=== PATIENT | male | born 1955 | race Caucasian/White ===

== ENCOUNTER 2022-09-22 19:07 | Emergency (ER) | payer BC, SELFPAY ==
--- NOTE | ~2022-09-22 | CT_ITS ---
EXAMINATION: CT ABDOMEN AND PELVIS WITHOUT CONTRAST CLINICAL INFORMATION: Left flank pain and hematuria with question of kidney stones COMPARISON: CT abdomen pelvis 03/07/2017 TECHNIQUE: Multidetector volumetric imaging was performed from the superior aspect of the liver through the pubic symphysis. Sagittal and coronal reformatted images were obtained on the technologist's workstation. This CT examination was performed using dose optimization techniques as appropriate, variously including the following: *Automated exposure control *Adjustment of mA and/or kV according to patient size (this includes techniques or standardized protocols for targeted exams where dose is matched to indication/reason for exam; i.e. extremities or head) *Use of iterative reconstruction technique DLP: 848 mGy-cm FINDINGS: LUNG BASES: The visualized lung bases are unremarkable. LIVER, GALLBLADDER, AND BILIARY TREE: The liver is normal in size, shape, and attenuation. No focal hepatic lesion or biliary ductal dilatation is present. Status post cholecystectomy. PANCREAS: Unremarkable. SPLEEN: Unremarkable. ADRENAL GLANDS: Unremarkable. KIDNEYS AND URETERS: The kidneys are normal in size, shape, and attenuation. There is a 5 mm mildly obstructing stone at the left ureterovesical junction. There is mild dilatation of the ureter and intrarenal collecting systems on the left. No right-sided hydronephrosis, hydroureter, or intrarenal calculi seen. No perinephric stranding. BLADDER: The bladder is completely empty. GASTROINTESTINAL TRACT: A small hiatal hernia is present. A sigmoid resection has been performed with a anastomosis. Extensive diverticular changes are present in the left colon without evidence of diverticulitis The small and large bowel are unremarkable. The appendix is not identified but no evidence of appendicitis. ABDOMINAL WALL: Prior mesh hernia repair in the right abdomen. LYMPH NODES: No retroperitoneal lymphadenopathy. VASCULAR: Unremarkable aside from some mild calcific plaque PELVIC VISCERA: Mild BPH. OSSEOUS STRUCTURES: Degenerative changes present throughout the spine most marked in the lower thoracic spine and at L3-L4. No bony destructive lesions. CT/CT abdomen pelvis wo IV con IMPRESSION: 1. Obstructing 5 mm calculus at the left ureterovesical junction causing mild hydronephrosis. 2. Other incidental findings as described above. Fleischner guidelines were followed.
[2022-09-22 19:28] VITALS: BP 181/93; PULSE 71; RESP 18; TEMP 36.1; O2SAT 97; BMI 35.4
--- NOTE | 2022-09-22 19:30 | ED_ITS ---
HPI - General Adult General Chief complaint: Urogenital-Male Stated complaint: L flank pain Time Seen by Provider: 09/22/22 22:34 Source: patient and family Mode of arrival: ambulatory Limitations: no limitations History of Present Illness HPI narrative: 66-year-old male came in with left flank pain about 5 hours ago pain has been constant localized to the left flank area and radiates to the left groin area, describes the pain as severe 10/10, was associated with nausea, vomiting, and 1 time loose stool diarrhea with no blood in it, patient also noticed having blood in the urine, never had similar pain in the past, no history of kidney stones. For Declined any history of intra-abdominal surgery. Related Data Previous Rx's Medication Instructions Recorded levofloxacin 750 mg tablet 750 mg PO DAILY #7 tabs 09/22/22 ondansetron 4 mg disintegrating 4 mg PO Q8-12H PRN nausea and 09/22/22 tablet vomiting #7 tabs oxycodone 5 mg tablet 5 mg PO Q8H PRN pain #14 tabs 09/22/22 prednisone 20 mg tablet 20 mg PO BID #10 tabs 09/22/22 tamsulosin 0.4 mg capsule (Flomax) 0.4 mg PO DAILY #10 caps 09/22/22 oxycodone-acetaminophen 5 mg-325 1 tab PO Q8H PRN pain #14 tabs 09/23/22 mg tablet (Endocet) Allergies Allergy/AdvReac Type Severity Reaction Status Date / Time No Known Allergies Allergy Verified 09/22/22 19:28 [No Known Allergies*] Review of Systems Review of Systems: All other systems are reviewed and are negative Constitutional: Reports as per HPI and Reports no additional constitutional c omplaints Eyes: Reports as per HPI and Reports no additional eye complaints Reports system reviewed and no additional complaints, except as documented Cardiovascular: Reports as per HPI and Reports no additional cardiovascular complaints Respiratory: Reports as per HPI and Reports no additional respiratory complaints Gastrointestinal: Reports as per HPI and Reports no additional gastrointestinal complaints Genitourinary: Reports no additional female genitourinary complaints Musculoskeletal: Reports no additional musculoskeletal complaints Skin/Breast: Reports system reviewed and no additional complaints, except as docu Psychiatric: Reports no additional psychiatric complaints Endocrine: Reports no additional endocrine complaints Hematologic/Lymphatic: Reports no additional hematologic/lymphatic complaints Allergic/Immunologic: Reports no additional allergic/immunologic complaints Reports system reviewed and no additional complaints, except as documented and Reports Abnormal speech present Physical Exam ED Vital Signs: Vital Signs - 24 hr 09/22/22 19:28 09/22/22 21:47 09/22/22 22:56 Temperature 97 F 97.5 F Pulse Rate 71 75 Respiratory Rate 18 19 16 Blood Pressure 181/93 H 172/90 H Pulse Oximetry 97 95 Oxygen Delivery Method Room Air Room Air BMI result Body Mass Index 35.4 Vital signs have been reviewed as appeared to be correct. Blood pressure normal. Heart rate normal. Respiration rate normal. Temperature normal. Oxygen saturation normal. Appearance: Alert. Oriented X3. No acute distress. Head: Normal external exam. Normocephalic. Atraumatic. No Zuniga signs noted. No raccoon eyes noted Eyes: PERRLA. EOMI. Conjunctiva and sclera normal. Eyelids normal. ENT: TM's Normal. Pharynx normal. Uvula midline. Moist mucous membranes. No trismus noted. No drooling noted. No muffled voice noted. Neck: Normal inspection. Neck supple. FROM. No adenopathy. Thyroid Normal. No meningeal signs. No neck mass noted. CVS: Normal heart rate and rhythm. Heart sound normal. No murmurs noted. Pulses normal throughout. Respiratory: No respiratory distress. Painless inspiration. Breath sounds normal. No wheezes/rales/rhonchi noted. Chest nontender. No accessory muscle usage noted or decreased air movement noted. Abdomen: Soft and nontender. Bowel sounds normal in all 4 quadrants. No distention noted. No organomegaly noted. No visible injury noted. Back: Left CVA tenderness. Full range of motion noted. Skin: Skin warm and dry. Normal skin color. Normal skin turgor. No rashes/lesions/lacerations noted. Extremities: No lower extremity edema. Extremities exhibit normal range of motion. Extremities nontender. Neuro: Oriented X 3. Cranial nerve exam: II-XII are grossly intact No motor deficit. No sensory deficit. Reflexes normal. Course Course Course Narrative: RME; 66 yold male presents to the ED for left flank pain, nuasea, and hemturia. Patient denies any trauma. labs and abdominal CT scan ordered Reevaluation(s) Reevaluation #1: 5 mm stone in the left UVJ causing the patient's symptoms, patient now has feeling better after IV Dilaudid and Toradol, patient will be discharged on oxycodone/prednisone/Flomax and follow up with Urology as an outpatient. Medications Administered Discontinued Medications Generic Name Dose Route Start Last Admin Trade Name Rayshawnq PRN Reason Stop Dose Admin Hydromorphone HCl 2 mg 09/22/22 22:39 09/22/22 22:56 Hydromorphone Hcl 2 Mg/Ml Vial IVPUSH 09/22/22 22:40 2 mg ONCE ONE Administration Protocol Sodium Chloride 1,000 mls @ 999 mls/hr 09/22/22 22:39 09/22/22 23:52 Ns IV 09/22/22 23:39 Infused .Q1H1M ONE Infusion Ketorolac Tromethamine 30 mg 09/22/22 22:39 09/22/22 22:55 Ketorolac Tromethamine 30 Mg/Ml Vial IVPUSH 09/22/22 22:40 30 mg ONCE ONE Administration Levofloxacin 750 mg 09/22/22 23:40 09/22/22 23:53 Levofloxacin 750 Mg Tablet PO 09/22/22 23:41 750 mg ONCE ONE Administration Ondansetron HCl 4 mg 09/22/22 22:39 09/22/22 22:56 Ondansetron Hcl 4 Mg/2 Ml Vial IVPUSH 09/22/22 22:40 4 mg ONCE ONE Administration Prednisone 40 mg 09/22/22 22:39 09/22/22 22:56 Prednisone 20 Mg Tablet PO 09/22/22 22:40 40 mg ONCE ONE Administration Tamsulosin HCl 0.4 mg 09/22/22 22:39 09/22/22 22:56 Tamsulosin Hcl 0.4 Mg Capsule PO 09/22/22 22:40 0.4 mg ONCE ONE Administration Medical Decision Making Differential Diagnosis Differential Diagnoses: The differential diagnosis associated with the presentation includes (Kidney stone, pyelonephritis, UTI, severe anemia, electrolyte abnormalities.) Admission/Observation Consideration of admission/observation: Escalation of care including admission/observation considered Lab Data MDM Lab Attestation statement: I reviewed the patient's lab results. 09/22/22 19:52 09/22/22 19:52 Labs: Lab Results 09/22/22 09/22/22 09/22/22 Range/Units 19:52 19:52 19:52 WBC 7.4 (4.8-10.8) X10*3/uL RBC 5.32 (4.60-5.80) X10*6/uL Hgb 15.6 (14.0-18.0) g/dl Hct 47.0 (42.0-52.0) % MCV 88.3 (80.0-98.0) fL MCH 29.3 (27.0-33.0) pg MCHC 33.2 (31.0-36.0) g/dl RDW 13.2 (11.0-16.0) % Plt Count 189 (160-400) X10*3/uL MPV 10.0 (9.4-12.4) fL Immature Gran % (Auto) 0.3 (0.0-0.4) % Neut % (Auto) 60.5 (45-73) % Lymph % (Auto) 27.5 (20-40) % [place] % (Auto) 9.3 (2-11) % Eos % (Auto) 1.9 (0-4) % Baso % (Auto) 0.5 (0-2) % Lymph # (Auto) 2.0 (1.2-4.9) X10*3/uL [place] # (Auto) 0.7 (0.1-1.2) X10*3/uL Eos # (Auto) 0.1 (0.0-0.4) X10*3/uL Baso # (Auto) 0.0 (0.0-0.2) X10*3/uL Abs Immat Gran (auto) 0.02 (0.00-0.03) X10*3/uL Absolute Neuts (auto) 4.5 (2.0-8.3) x10*3/uL Absolute Nucleated RBC 0.000 (0.0-0.012) X10*3/uL Nucleated RBC % (auto) 0.0 (0.0-0.2) /100WBC PT 10.3 (10.0-13.1) SEC INR 0.9 (0.9-1.1) APTT 29.5 (26.0-36.4) SEC Sodium 143 (135-145) mmol/L Potassium 4.5 (3.3-5.1) mmol/L Chloride 106 (96-108) mmol/L Carbon Dioxide 26 (22-29) mmol/L Anion Gap 16 (12-20) BUN 13 (9-16) mg/dL Creatinine 1.07 (0.5-1.4) mg/dL Estim Creat Clear Calc 88.7 Estimated GFR > 60 Random Glucose 96 (60-115) mg/dL Calcium 9.3 (8.4-10.2) mg/dL Total Bilirubin 1.0 (0.0-1.0) mg/dL AST 19 (5-37) U/L ALT 21 (0-40) U/L Alkaline Phosphatase 75 (39-117) U/L Total Protein 7.4 (6.5-8.0) g/dL Albumin 4.3 (3.5-5.0) g/dL Urine Color Urine Appearance Urine pH (5.0-9.0) Ur Specific [place] (1.005-1.025) Urine Protein (Neg-Trace) mg/dL Urine Glucose (UA) (Negative) mg/dL Urine Ketones (Negative) mg/dL Urine Blood (Negative) Urine Nitrite (Negative) Ur Leukocyte Esterase (Negative) Urine RBC (0-2) /HPF Urine WBC (0-5) /HPF Ur Squamous Epith Cells (0-2) /HPF Calcium Oxalate Crystal Urine Bacteria (None Seen) Hyaline Casts (0-2) /LPF 09/22/22 Range/Units 21:50 WBC (4.8-10.8) X10*3/uL RBC (4.60-5.80) X10*6/uL Hgb (14.0-18.0) g/dl Hct (42.0-52.0) % MCV (80.0-98.0) fL MCH (27.0-33.0) pg MCHC (31.0-36.0) g/dl RDW (11.0-16.0) % Plt Count (160-400) X10*3/uL MPV (9.4-12.4) fL Immature Gran % (Auto) (0.0-0.4) % Neut % (Auto) (45-73) % Lymph % (Auto) (20-40) % [place] % (Auto) (2-11) % Eos % (Auto) (0-4) % Baso % (Auto) (0-2) % Lymph # (Auto) (1.2-4.9) X10*3/uL [place] # (Auto) (0.1-1.2) X10*3/uL Eos # (Auto) (0.0-0.4) X10*3/uL Baso # (Auto) (0.0-0.2) X10*3/uL Abs Immat Gran (auto) (0.00-0.03) X10*3/uL Absolute Neuts (auto) (2.0-8.3) x10*3/uL Absolute Nucleated RBC (0.0-0.012) X10*3/uL Nucleated RBC % (auto) (0.0-0.2) /100WBC PT (10.0-13.1) SEC INR (0.9-1.1) APTT (26.0-36.4) SEC Sodium (135-145) mmol/L Potassium (3.3-5.1) mmol/L Chloride (96-108) mmol/L Carbon Dioxide (22-29) mmol/L Anion Gap (12-20) BUN (9-16) mg/dL Creatinine (0.5-1.4) mg/dL Estim Creat Clear Calc Estimated GFR Random Glucose (60-115) mg/dL Calcium (8.4-10.2) mg/dL Total Bilirubin (0.0-1.0) mg/dL AST (5-37) U/L ALT (0-40) U/L Alkaline Phosphatase (39-117) U/L Total Protein (6.5-8.0) g/dL Albumin (3.5-5.0) g/dL Urine Color BROWN Urine Appearance Cloudy Urine pH 6.5 (5.0-9.0) Ur Specific [place] >= 1.030 H (1.005-1.025) Urine Protein 300 (3+) H (Neg-Trace) mg/dL Urine Glucose (UA) Negative (Negative) mg/dL Urine Ketones Trace (Negative) mg/dL Urine Blood Large (3+) H (Negative) Urine Nitrite Negative (Negative) Ur Leukocyte Esterase Trace H (Negative) Urine RBC >20 H (0-2) /HPF Urine WBC 6-10 H (0-5) /HPF Ur Squamous Epith Cells 0-2 (0-2) /HPF Calcium Oxalate Crystal Present Urine Bacteria None Seen (None Seen) Hyaline Casts 0-2 (0-2) /LPF Independent Interpretation I performed an independent interpretation of an: CT Scan (Abdomen and pelvis: 5 mm stone in the left UVJ with mild hydronephrosis.) Radiology Impression Discussion of test interpretation with radiology: I have reviewed the r adiologist's reading. Discharge Plan Discharge Clinical Impression: Calculus of left ureter Patient Disposition: Home, Self-Care Instructions: Ureteral Stones (ED) Prescriptions: New oxycodone 5 mg tablet 5 mg PO Q8H PRN (Reason: pain) Qty: 14 0RF Rx Instructions: Partial Fill upon patient request. tamsulosin [Flomax] 0.4 mg capsule 0.4 mg PO DAILY Qty: 10 0RF prednisone 20 mg tablet 20 mg PO BID Qty: 10 0RF ondansetron 4 mg tablet,disintegrating 4 mg PO Q8-12H PRN (Reason: nausea and vomiting) Qty: 7 0RF levofloxacin 750 mg tablet 750 mg PO DAILY Qty: 7 0RF oxycodone-acetaminophen [Endocet] 5-325 mg tablet 1 tab PO Q8H PRN (Reason: pain) Qty: 14 0RF Rx Instructions: Partial Fill upon patient request. Referrals: Willis Shah MD [Physician] - Interventions: ED Discharge Assessment Last Done: 09/22/22 23:55 Discharge Date/Time: 09/22/22 23:56
[2022-09-22 20:15] LABS: MANUAL DIFF FLAG NO
[2022-09-22 20:18] LABS: Basophils Percent Auto 0.5 % (0-2); Eosinophils Absolute Auto 0.1 X10*3/uL (0.0-0.4); Eosinophils Percent Auto 1.9 % (0-4); Hemoglobin 15.6 g/dl (14.0-18.0); Imm Gran Abs Auto 0.02 X10*3/uL (0.00-0.03); Imm Gran Pct Auto 0.3 % (0.0-0.4); Lymphocytes Percent Auto 27.5 % (20-40); Mean Corpuscular HGB Conc 33.2 g/dl (31.0-36.0); Mean Corpuscular Hemoglobin 29.3 pg (27.0-33.0); Mean Corpuscular Volume 88.3 fL (80.0-98.0); Monocytes Absolute Auto 0.7 X10*3/uL (0.1-1.2); Monocytes Percent Auto 9.3 % (2-11); Neutrophils Absolute Auto 4.5 x10*3/uL (2.0-8.3); Neutrophils Percent Auto 60.5 % (45-73); Platelet Count 189 X10*3/uL (160-400); Red Blood Count 5.32 X10*6/uL (4.60-5.80); Red Cell Distribution Width 13.2 % (11.0-16.0); White Blood Count 7.4 X10*3/uL (4.8-10.8)
[2022-09-22 20:29] LABS: INTERNATIONAL NORM RATIO 0.9 (0.9-1.1); Prothrombin Time 10.3 SEC (10.0-13.1)
[2022-09-22 20:32] LABS: Partial Thromboplastin Time 29.5 SEC (26.0-36.4)
[2022-09-22 20:33] LABS: Alanine Aminotransferase 21 U/L (0-40); Albumin Level 4.3 g/dL (3.5-5.0); Alkaline Phosphatase 75 U/L (39-117); Anion Gap 16 (12-20); Aspartate Amino Transferase 19 U/L (5-37); Blood Urea Nitrogen 13 mg/dL (9-16); Calcium 9.3 mg/dL (8.4-10.2); Carbon Dioxide 26 mmol/L (22-29); Chloride 106 mmol/L (96-108); Creatinine Clr Calc Pharmacy 88.7; Estimated Glomerular Filt Rate > 60; Glucose Random 96 mg/dL (60-115); Potassium 4.5 mmol/L (3.3-5.1); Sodium 143 mmol/L (135-145); Total Protein 7.4 g/dL (6.5-8.0)
[2022-09-22 21:47] VITALS: BP 172/90; PULSE 75; RESP 19; TEMP 36.4; O2SAT 95
[2022-09-22 22:00] LABS: Appearance Urine Cloudy; Color Urine BROWN; Glucose Urine UA Negative (Negative); Leukocyte Esterase Urine Trace (Negative); PH 6.5 (5.0-9.0); Specific Gravity - Urine >= 1.030 (1.005-1.025); UMIC TRIGGER UACC YES; Urine Blood Large (3+) (Negative); Urine Ketones Trace mg/dL (Negative); Urine Protein 300 (3+) mg/dL (Neg-Trace)
[2022-09-22 22:26] LABS: Bacteria Urine None Seen (None Seen); Calcium Oxalate Crystals Urine Present; Hyaline Casts Urine 0-2 /LPF (0-2); RBC Urine >20 /HPF (0-2); Squamous Epithelial Cell Urine 0-2 /HPF (0-2)
[2022-09-22 22:46] LABS: Nitrite Urine Negative (Negative); UACC Culture Trigger YES
[2022-09-22] MEDS: 0.9 % Sodium Chloride 1,000 ML 999 ML IV (22:55)
[2022-09-22] MEDS: Ketorolac Tromethamine 30 MG/ML VIAL IVPUSH (22:55)
[2022-09-22 22:56] VITALS: RESP 16
[2022-09-22] MEDS: Tamsulosin HCL 0.4 MG CAPSULE PO (22:56)
[2022-09-22] MEDS: HYDROmorphone HCl 2 MG/ML VIAL IVPUSH (22:56)
[2022-09-22] MEDS: ondansetron HCL 4 MG/2 ML VIAL IVPUSH (22:56)
[2022-09-22] MEDS: predniSONE 20 MG TABLET 40 MG PO (22:56)
--- NOTE | 2022-09-22 23:28 | PC.NURSE ---
iv line placed and pt medicated per mar for obstructing kidney stone. pt actively vomiting at time of iv insertion. upon reassessment, pt sleeping, appearing much more comfortable, able to lay down and reports pain went from 10/10 to 3/10 after medication administration. iv fluids still running, at bedside, will CTM.
[2022-09-22] MEDS: levoFLOXacin 750 MG TABLET PO (23:53)
== END 2022-09-22 23:56 | disposition home or self-care (01) ==
PROVIDERS: Physician Assistant; Emergency Provider Emergency Medicine; PCP Internal Medicine
DX: N20.1 Calculus of ureter (principal); Z79.899 Other long term (current) drug therapy
CPT/HCPCS: 36415; 74176; 80053; 81001; 81003; 85025; 85610; 85730; 87086; 96361; 96374; 96375; 99283; 99284; J1170; J1885; J2405

== ENCOUNTER → 2022-09-30 08:13 | Outpatient (BNVA) | payer BC, SELFPAY | PROVIDERS: PCP Internal Medicine; Visit Provider Urology ==

== ENCOUNTER 2022-10-25 16:24 | Outpatient (REF) | payer BC, SELFPAY ==
--- NOTE | ~2022-10-25 | US_ITS ---
EXAMINATION: US RETROPERITONEAL COMPLETE (RENAL) CLINICAL INFORMATION: Calculus of ureter. COMPARISON: CT abdomen and pelvis 09/22/2022. TECHNIQUE: Real-time imaging of the kidneys and bladder. FINDINGS: RIGHT KIDNEY: 9.9 x 6.3 x 4.4 cm (SAG x AP x TRV). The kidney is normal in size, contour, and echogenicity. Renal cortical thickness is normal. No calculi or focal parenchymal lesions. No hydronephrosis. LEFT KIDNEY: 12.2 x 5.9 x 5.0 cm (SAG x AP x TRV). The kidney is normal in size, contour, and echogenicity. Renal cortical thickness is normal. No calculi or focal parenchymal lesions. No hydronephrosis. BLADDER: Well distended and normal. Bilateral ureteral jets are demonstrated. Prevoid bladder volume is 293.8 mL. Postvoid bladder volume is 72.8 mL. Shadowing from bowel gas obscures evaluation of the left ureterovesicular junction. US/US retroperitoneal comp IMPRESSION: 1. Shadowing from bowel gas obscures evaluation of the left ureterovesicular junction. No hydronephrosis or nephrolithiasis identified with certainty. 2. Small postvoid bladder residual of 72.8 mL.
== END 2022-10-25 16:25 | disposition home or self-care (01) ==
LOC: HO.US 16:24
PROVIDERS: Visit Provider Urology
DX: N20.1 Calculus of ureter (principal)
CPT/HCPCS: 76770

== ENCOUNTER 2022-11-13 08:05 | Outpatient (AMB) | payer BC, SELFPAY ==
--- NOTE | 2022-11-13 06:48 | A.OFFVIS_ITS ---
Intake Intake Visit Reasons: UVJ stone follow up/US/[facility] Intake Note: Patient presents today for a follow-up on Kidney Stone & US Results: Pt stated has not passed the stone yet, therefor pt did not do the 24 hr Urine Collection for [facility]: Meds- Tamsulosin Allergies to Antibiotic- None Blood Thinner- None Patient states that he stopped taking tamsulosin states that the medication along with his other medications was causing patient to be dizzy. Allergies No Known Allergies [No Known Allergies*] Allergy (Verified 11/13/22 08:07) HPI HPI Comments History of Present Illness Details Jose Alejandro is a 66-year-old male who presents today to the office for a follow-up of kidney stones and ultrasound. LV-- 09/30/22-- The patient was seen in the ED on 09/22/22 with left flank pain and was found to have a 5 mm UPJ stone.He is with his who is a Nurse Practitioner. States not having flank pain anymore and has needed oxycodone-acetaminophen only 3 x for pain management since the ER discharge. states increased voiding episodes/Urgency. The patient never had a history of stone. States has increased? amount fluids during the day. Denies straining the urine.? States the PSA is regularly checked by his primary and previous CAT scan shows mild enlargement. Denies any additional urinary symptoms. I have discussed as the stone is at the UVJ and his symptoms are not severe, will monitor and see if he can pass the stone. but he is advised if symptoms worsen to call. CTAP results reviewed?09/22/22-- findings of 5 mm calculus at the left ureterovesical junction. Evaluation today-- Blood: negative, leukocytes: negative. 11/13/2022-- The patient's last visit was on 09/30/22. The patient was seen on 09/30/22 after having a visit in the ED on 09/22/22 for a left flank pain secondary to a 5 mm left ureteral stone. He was treated with Flomax. Encouraged to drink increased fluid intake. He is here in follow-up with renal ultrasound which was done on 10/25/22. Results reviewed-- The renal ultrasound notes bilateral ureteral jets. No hydronephrosis. No kidney stones. Patient reports occasional discomfort in the groin area on the left side. He states he has been staying well hydrated. He has been trying to stay active without much discomfort. He reports that he felt lightheaded and dizzy and discontinued the Flomax. Evaluation today UA-- 11/13/2022-- leucocytes: negative; blod: negative. Evaluation today-- On exam, no hydronephrosis. There is no CVA tenderness on the left. There is no left lower quadrant tenderness on examination. I have gone over the diet sheet with him. He was given the pamphlet. I discussed with the patient that based on his exam today and renal sono results, he has likely passed the stone. Plan: I emphasized the importance of keeping well hydrated. 24-hour urine will be set up. Follow up in 4 months to review the 24-hour urine results. Review of Systems Const All systems reviewed & are unremarkable except as noted in HPI and below Reports no additional complaints Eyes Reports no additional complaints ENT Denies neck pain Card Denies leg edema Resp Denies cough GI Denies constipation Musc Reports no additional complaints and Denies neck pain Skin/Breast Denies rash and Denies unusual bruising Neuro Reports no additional complaints Psych Reports no additional complaints Endo Reports no additional complaints Mark/Lymph Reports no additional complaints Aller/Immun Reports no additional complaints Physical Exam Const General: healthy appearing, no acute distress and well developed Orientation/consciousness: patient oriented x3 HEENT Head: Yes normocephalic and Yes atraumatic Eyes Conjunctivae: conjunctivae normal Neck Neck: Yes normal visual inspection Chest Chest palpation & inspection: normal inspection of the chest Resp Effort & Inspection: normal respiratory effort Cardio Rate: regular rate GI Inspection: Yes normal to inspection Palpation (GI): Soft to palpation General: Yes no CVA tenderness Back/Spine/Pelvis Back: no CVA tenderness Skin General skin exam: no rashes or lesions noted Neuro General: patient oriented x3 Extrem General: No pedal edema Psych Appearance: grossly normal Affect: normal affect Results AMB Urinalysis, Automated UA Leukoctes 0 Betzy/uL Last Edit by IRAM Conner on 11/13/22 08:15 UA Nitrite Negative Last Edit by IRAM Conner on 11/13/22 08:15 UA Urobilinogen 0.2 mg/dL Last Edit by IRAM Conner on 11/13/22 08:1 5 UA Protein 15 mg/dL Last Edit by Stephanie Anaya A on 11/13/22 08:15 UA pH 5.5 Last Edit by Stephanie Anaya A on 11/13/22 08:15 UA Blood 0 Zachery/uL Last Edit by Stephanie Anaya, RMA on 11/13/22 08:15 UA Specific [place] 1.020 Last Edit by Stephaniejose Anaya, A on 11/13/22 08: 15 UA Ketone Negative Last Edit by Stephanie Anaya, A on 11/13/22 08:15 UA Bilirubin 0 mg/dL Last Edit by Stephanie Anaya, RMA on 11/13/22 08:15 UA Glucose 0 mg/dL Last Edit by Stephanie Anaya A on 11/13/22 08:15 Results Reviewed Results Reviewed: Laboratory Last Values Urine pH (Auto) 5.5 11/13/22 08:09 Specific [place] (Auto) 1.020 11/13/22 08:09 Urine Protein (Auto) 15 mg/dL 11/13/22 08:09 Glucose (UA)(Auto) 0 mg/dL 11/13/22 08:09 Urine Ketones (Auto) Negative 11/13/22 08:09 Urine Blood (Auto) 0 Zachery/uL 11/13/22 08:09 Urine Nitrite (Auto) Negative 11/13/22 08:09 Urine Bilirubin (Auto) 0 mg/dL 11/13/22 08:09 Urine Urobilinogen (Auto) 0.2 mg/dL 11/13/22 08:09 Leukocyte Esterase (Auto) 0 Betzy/uL 11/13/22 08:09 Date of Service: 10/25/22 EXAMINATION: US RETROPERITONEAL COMPLETE (RENAL) CLINICAL INFORMATION: Calculus of ureter. COMPARISON: CT abdomen and pelvis 09/22/2022. FINDINGS: RIGHT KIDNEY: 9.9 x 6.3 x 4.4 cm (SAG x AP x TRV). The kidney is normal in size, contour, and echogenicity. Renal cortical thickness is normal. No calculi or focal parenchymal lesions. No hydronephrosis. LEFT KIDNEY: 12.2 x 5.9 x 5.0 cm (SAG x AP x TRV). The kidney is normal in size, contour, and echogenicity. Renal cortical thickness is normal. No calculi or focal parenchymal lesions. No hydronephrosis. BLADDER: Well distended and normal. Bilateral ureteral jets are demonstrated. Prevoid bladder volume is 293.8 mL. Postvoid bladder volume is 72.8 mL. Shadowing from bowel gas obscures evaluation of the left ureterovesicular junction. IMPRESSION: 1.? Shadowing from bowel gas obscures evaluation of the left ureterovesicular junction. No hydronephrosis or nephrolithiasis identified with certainty. 2.? Small postvoid bladder residual of 72.8 mL. Assessment & Plan Assessment & Plan (1) Calculus of left ureter: Code(s): N20.1 - Calculus of ureter (2) Kidney stone: Code(s): N20.0 - Calculus of kidney Orders: Orders AMB Urinalysis Automated 11/13/22 Z13.9 - Encounter for screening, unspecified Patient Instructions: The patient had an opportunity to ask questions regarding treatment plan. All questions were answered. Imaging, Laboratory studies and physical exam results were discussed and reviewed in detail. No major barriers to understanding were identified. The patient expressed understanding and agreement with the above treatment plan.? ? ? The patient is aware they should contact our office by phone for worsening of their current condition or the appearance of new symptoms. Compliance is encouraged with any medications and followup testing that is ordered.? ? ? It is a privilege to be allowed the opportunity to participate in the urologic care of your patient. If you have any questions or concerns regarding treatment for the above conditions please do not hesitate to contact me. The office telephone contact is [phone].? ? ? This note is constructed in part using voice recognition software. While every effort has been made to ensure accuracy [employer] umpire errors may have been included.? ? ? Yours sincerely,? ? ? Timothy Blunt MD? Coding Level of Care Code Est Pt Level 3 (96092) Diagnoses Calculus of left ureter N20.1 Kidney stone N20.0
== END 2022-11-13 09:04 | disposition home or self-care (01) ==
PROVIDERS: PCP Internal Medicine; Visit Provider Urology
DX: N20.1 Calculus of ureter (principal); N20.0 Calculus of kidney
CPT/HCPCS: 99213

== ENCOUNTER → 2022-11-13 08:05 | Outpatient (BNVA) | payer BC, SELFPAY | PROVIDERS: PCP Internal Medicine; Visit Provider Urology ==

== ENCOUNTER 2023-10-26 10:13 | Emergency (ER) | payer BC, SELFPAY ==
--- NOTE | ~2023-10-26 | CT_ITS ---
EXAMINATION: CT ABDOMEN AND PELVIS WITHOUT CONTRAST CLINICAL INFORMATION: Reason for Exam left flank pain. COMPARISON: No pertinent prior studies are available for comparison. TECHNIQUE: Multidetector volumetric imaging was performed from the superior aspect of the liver through the pubic symphysis without contrast per renal stone protocol. Sagittal and coronal reformatted images were obtained on the technologist workstation. This CT examination was performed using dose optimization techniques as appropriate, variously including the following: *Automated exposure control *Adjustment of mA and/or kV according to patient size (this includes techniques or standardized protocols for targeted exams where dose is matched to indication/reason for exam; i.e. extremities or head) *Use of iterative reconstruction technique DLP: 802 mGy-cm. FINDINGS: LUNG BASES: Linear atelectatic changes at the bases LIVER, GALLBLADDER, BILIARY TREE: The non-contrast liver is normal in size, shape, and attenuation. No focal hepatic lesion or biliary ductal dilatation is present. Gallbladder surgically absent. PANCREAS: Unremarkable. SPLEEN: Unremarkable. ADRENAL GLANDS: Unremarkable. KIDNEYS AND URETERS: The kidneys are normal in size, shape, and attenuation. No hydronephrosis, hydroureter, or perinephric stranding. No calculi. BLADDER: Unremarkable. GASTROINTESTINAL TRACT: Anastomotic staple line in the rectosigmoid colon. Scattered colonic diverticulosis but no evidence for diverticulitis. Appendix is not visualized and presumably surgically absent. Small bowel unremarkable. Stomach decompressed ABDOMINAL WALL: Anterior hernia mesh noted. No evidence for reherniation LYMPHOVASCULAR STRUCTURES: Vascular calcification within the aorta iliac system. PELVIC VISCERA: Unremarkable. OSSEUS STRUCTURES: Multilevel degenerative changes in the spine CT/CT abdomen pelvis wo IV con IMPRESSION: Chronic appearing and postoperative changes as described.
[2023-10-26 10:16] VITALS: BP 158/86; PULSE 78; RESP 18; TEMP 36.4; O2SAT 96; BMI 34.7
[2023-10-26 10:31] LABS: MANUAL DIFF FLAG NO
[2023-10-26 10:32] LABS: Basophils Percent Auto 0.7 % (0-2); Eosinophils Absolute Auto 0.1 X10*3/uL (0.0-0.4); Eosinophils Percent Auto 1.8 % (0-4); Hematocrit 46.5 % (42.0-52.0); Imm Gran Abs Auto 0.01 X10*3/uL (0.00-0.03); Imm Gran Pct Auto 0.2 % (0.0-0.4); Lymphocytes Absolute Auto 1.6 X10*3/uL (1.2-4.9); Lymphocytes Percent Auto 27.4 % (20-40); Mean Corpuscular HGB Conc 34.4 g/dl (31.0-36.0); Mean Corpuscular Volume 87.2 fL (80.0-98.0); Mean Platelet Volume 9.8 fL (9.4-12.4); Monocytes Absolute Auto 0.7 X10*3/uL (0.1-1.2); Monocytes Percent Auto 11.1 % (2-11); Neutrophils Absolute Auto 3.5 x10*3/uL (2.0-8.3); Neutrophils Percent Auto 58.8 % (45-73); Platelet Count 218 X10*3/uL (160-400); Red Blood Count 5.33 X10*6/uL (4.60-5.80); Red Cell Distribution Width 13.2 % (11.0-16.0)
[2023-10-26 10:34] LABS: Appearance Urine Clear; Color Urine Yellow; Glucose Urine UA Negative (Negative); Leukocyte Esterase Urine Negative (Negative); Nitrite Urine Negative (Negative); PH 6.5 (5.0-9.0); Specific Gravity - Urine <= 1.005 (1.005-1.025); Urine Blood Negative (Negative); Urine Ketones Negative (Negative); Urine Protein Negative (Neg-Trace)
[2023-10-26 10:46] LABS: Alanine Aminotransferase 17 U/L (0-40); Albumin Level 4.4 g/dL (3.5-5.0); Alkaline Phosphatase 75 U/L (39-117); Anion Gap 13 (12-20); Aspartate Amino Transferase 14 U/L (5-37); Blood Urea Nitrogen 10 mg/dL (9-16); Calcium 9.5 mg/dL (8.4-10.2); Carbon Dioxide 23 mmol/L (22-29); Chloride 108 mmol/L (96-108); Creatinine Clr Calc Pharmacy 91.9; Estimated Glomerular Filt Rate > 60; Glucose Random 115 mg/dL (60-115); Lipase 31 U/L (8-78); Potassium 4.2 mmol/L (3.3-5.1); Sodium 140 mmol/L (135-145); Total Protein 7.7 g/dL (6.5-8.0)
[2023-10-26 11:12] VITALS: BP 148/77; PULSE 65; RESP 16; TEMP 36.6; O2SAT 94
--- NOTE | 2023-10-26 12:12 | ED.ABDPAIN ---
HPI - Abdominal Pain General Chief Complaint: Abdominal Pain Stated Complaint: kidney stones? Time Seen by Provider: 10/26/23 11:54 Source: patient and RN notes reviewed Mode of arrival: ambulatory Limitations: no limitations History of Present Illness ED Provider: Nancy Guzman PA-C HPI narrative: This is a 67-year-old male, with a history of kidney stones, diverticulitis with colon resection, who presents emergency department with complaints of left-sided flank pain since this morning. Patient states that he woke up no pain however gradually throughout this morning, he has had achiness to his left flank with associated urinary frequency and urgency. Denies dysuria or hematuria. No fevers. He endorses nausea, no vomiting, diarrhea. No chest pain or shortness of breath. Denies taking any medications prior to his arrival. No other complaints or concerns at this time. MD elicited complaint: flank pain Pertinent past history: diverticulitis Pain Consistency: intermittent Location: none Quality: aching Radiation: L flank Migration to: no migration Exacerbating factors: nothing Relieving factors: nothing Associated symptoms: denies other symptoms Related Data Home Medications ?Medication ?Instructions ?Recorded ?Confirmed atorvastatin 10 mg tablet 10 mg PO BEDTIME 09/30/22 09/30/22 Previous Rx's ?Medication ?Instructions ?Recorded ondansetron 4 mg disintegrating 4 mg PO Q8-12H PRN nausea and 09/22/22 tablet vomiting #7 tabs prednisone 20 mg tablet 20 mg PO BID #10 tabs 09/22/22 tamsulosin 0.4 mg capsule (Flomax) 0.4 mg PO DAILY #30 caps 09/30/22 Allergies Allergy/AdvReac Type Severity Reaction Status Date / Time No Known Allergies Allergy Verified 10/26/23 10:18 [No Known Allergies*] Review of Systems Review of Systems Yes all other systems are reviewed and are negative Constitutional: Reports as per [facility] Social History Social History Smoked in Last 30 Days: No Use of substances other than those prescribed or required for medical reasons: No Advance Directives: No Advance Directives Information Provided: No Do you have a plan to hurt others: No Plan Physical Exam ED Vital Signs: Vital Signs - 24 hr 10/26/23 10:16 10/26/23 11:12 10/26/23 13:49 Temperature 97.6 F 97.9 F 97.5 F Pulse Rate 78 65 66 Respiratory Rate 18 16 16 Blood Pressure 158/86 H 148/77 H 139/81 Pulse Oximetry 96 94 95 Oxygen Delivery Method Room Air Room Air Room Air BMI result Body Mass Index 34.7 Const General: cooperative, comfortable and no acute distress Orientation/consciousness: patient oriented x3 Limitations: no limitations HENMT Head: Yes normal to inspection, Yes normocephalic and Yes atraumatic Ears: hearing grossly normal bilaterally General nose exam: Normal external nose present Face and sinus: Yes normal facial exam Mouth: Normal oral and palatal mucosa present, oropharynx normal and moist mucous membranes Throat: Yes posterior oropharynx normal Eyes General: appearance normal, both eyes and all related structures Eyelids: Yes eyelids normal Conjunctivae: conjunctivae normal Sclerae: sclerae normal Pupils: Equal, round and reactive pupils present EOM: EOMs intact bilaterally Neck Neck: Yes normal visual inspection, Yes full ROM and Yes no lymphadenopathy Lymphatic: no lymphadenopathy noted Chest Chest palpation & inspection: normal inspection of the chest Resp Effort & Inspection: normal respiratory effort and able to speak in complete sentences Auscultation: clear to auscultation bilaterally, no crackles, no rales, no rhonchi and no wheezes Cardio Rate: regular rate Rhythm: regular rhythm Heart sounds: S1 normal heart sound present and S2 normal heart sound present GI Other: Large old surgical scar noted, well healed. Abdomen is soft, nontender, nondistended Inspection: Yes normal to inspection Back/Spine/Pelvis Other: Mild left CVA tenderness Skin General skin exam: no rashes or lesions noted Trauma: no lacerations or abrasions Wounds: no wounds Neuro General: patient oriented x3 and moves all extremities Cranial nerves: Yes Equal, round and reactive pupils present Extrem General: Yes normal to inspection Right upper extremity: normal to inspection Left upper extremity: normal to inspection Right lower extremity: normal to inspection Left lower extremity: normal to inspection Course Reevaluation(s) Reevaluation #1: Patient feeling much better after receiving medications, CT scan unremarkable. Symptoms likely musculoskeletal in nature. Discussed findings with patient as well as at bedside. Given strict return precautions. They understand and agree with plan. Patient stable for discharge. Medical Decision Making Medical Decision Making MDM Narrative: This is a 67-year-old male, with a history of kidney stones, who presents emergency department with complaints of left-sided flank pain, nausea, since this morning. History of kidney stones symptoms feel similar patient mildly hypertensive at 158/86, all other vital signs within normal limits. Patient is comfortable and well-appearing, he has left-sided CVA tenderness on examination. Labs were performed prior to my assessment, he has no leukocytosis, H&H within normal limits. No evidence of ARIES, urine does not appear to be infected. Given left-sided CVA tenderness with history of kidney stones, CT abdomen and pelvis was ordered. Also medicated with Toradol, Zofran, and IV fluids. Differential Diagnosis Differential Diagnoses: The differential diagnosis associated with the presentation includes Obstructive uropathy, acute cystitis, ARIES, hydronephrosis Admission/Observation Consideration of admission/observation: Escalation of care including admission/observation considered Lab Data MDM Lab Attestation statement: I reviewed the patient's lab results. No leukocytosis, stable H&H, chemistry within normal limits. Urine without any signs of infection or hematuria 10/26/23 10:26 10/26/23 10:26 Labs: Lab Results 10/26/23 Range/Units 10:26 WBC 6.0 (4.8-10.8) X10*3/uL RBC 5.33 (4.60-5.80) X10*6/uL Hgb 16.0 (14.0-18.0) g/dl Hct 46.5 (42.0-52.0) % MCV 87.2 (80.0-98.0) fL MCH 30.0 (27.0-33.0) pg MCHC 34.4 (31.0-36.0) g/dl RDW 13.2 (11.0-16.0) % Plt Count 218 (160-400) X10*3/uL MPV 9.8 (9.4-12.4) fL Immature Gran % (Auto) 0.2 (0.0-0.4) % Neut % (Auto) 58.8 (45-73) % Lymph % (Auto) 27.4 (20-40) % [place] % (Auto) 11.1 H (2-11) % Eos % (Auto) 1.8 (0-4) % Baso % (Auto) 0.7 (0-2) % Lymph # (Auto) 1.6 (1.2-4.9) X10*3/uL [place] # (Auto) 0.7 (0.1-1.2) X10*3/uL Eos # (Auto) 0.1 (0.0-0.4) X10*3/uL Baso # (Auto) 0.0 (0.0-0.2) X10*3/uL Abs Immat Gran (auto) 0.01 (0.00-0.03) X10*3/uL Absolute Neuts (auto) 3.5 (2.0-8.3) x10*3/uL Absolute Nucleated RBC 0.000 (0.0-0.012) X10*3/uL Nucleated RBC % (auto) 0.0 (0.0-0.2) /100WBC Sodium 140 (135-145) mmol/L Potassium 4.2 (3.3-5.1) mmol/L Chloride 108 (96-108) mmol/L Carbon Dioxide 23 (22-29) mmol/L Anion Gap 13 (12-20) BUN 10 (9-16) mg/dL Creatinine 1.01 (0.5-1.4) mg/dL Estim Creat Clear Calc 91.9 Estimated GFR > 60 Random Glucose 115 (60-115) mg/dL Calcium 9.5 (8.4-10.2) mg/dL Total Bilirubin 1.0 (0.0-1.0) mg/dL AST 14 (5-37) U/L ALT 17 (0-40) U/L Alkaline Phosphatase 75 (39-117) U/L Total Protein 7.7 (6.5-8.0) g/dL Albumin 4.4 (3.5-5.0) g/dL Lipase 31 (8-78) U/L Urine Color Yellow Urine Appearance Clear Urine pH 6.5 (5.0-9.0) Ur Specific [place] <= 1.005 (1.005-1.025) Urine Protein Negative (Neg-Trace) mg/dL Urine Glucose (UA) Negative (Negative) mg/dL Urine Ketones Negative (Negative) mg/dL Urine Blood Negative (Negative) Urine Nitrite Negative (Negative) Ur Leukocyte Esterase Negative (Negative) Radiology Impression Discussion of test interpretation with radiology: I have reviewed the radiologist's reading. Radiologist Impression: EXAMINATION: CT ABDOMEN AND PELVIS WITHOUT CONTRAST CLINICAL INFORMATION: Reason for Exam left flank pain. COMPARISON: No pertinent prior studies are available for comparison. TECHNIQUE: Multidetector volumetric imaging was performed from the superior aspect of the liver through the pubic symphysis without contrast per renal stone protocol. Sagittal and coronal reformatted images were obtained on the technologist workstation. This CT examination was performed using dose optimization techniques as appropriate, variously including the following: *Automated exposure control *Adjustment of mA and/or kV according to patient size (this includes techniques or standardized protocols for targeted exams where dose is matched to indication/reason for exam; i.e. extremities or head) *Use of iterative reconstruction technique DLP: 802 mGy-cm. FINDINGS: LUNG BASES: Linear atelectatic changes at the bases LIVER, GALLBLADDER, BILIARY TREE: The non-contrast liver is normal in size, shape, and attenuation. No focal hepatic lesion or biliary ductal dilatation is present. Gallbladder surgically absent. PANCREAS: Unremarkable. SPLEEN: Unremarkable. ADRENAL GLANDS: Unremarkable. KIDNEYS AND URETERS: The kidneys are normal in size, shape, and attenuation. No hydronephrosis, hydroureter, or perinephric stranding. No calculi. BLADDER: Unremarkable. GASTROINTESTINAL TRACT: Anastomotic staple line in the rectosigmoid colon. Scattered colonic diverticulosis but no evidence for diverticulitis. Appendix is not visualized and presumably surgically absent. Small bowel unremarkable. Stomach decompressed ABDOMINAL WALL: Anterior hernia mesh noted. No evidence for reherniation LYMPHOVASCULAR STRUCTURES: Vascular calcification within the aorta iliac system. PELVIC VISCERA: Unremarkable. OSSEUS STRUCTURES: Multilevel degenerative changes in the spine CT/CT abdomen pelvis wo IV con IMPRESSION: Chronic appearing and postoperative changes as described. Dictated By: Zhang Mccoy MD External Record Review External record reviewed: Inpatient record, Office record, Outpatient record, Prior outpatient labs, Prior outpatient radiology, Primary care record and Outside ED record Medications Administered Discontinued Medications Generic Name Dose Route Start Last Admin Trade Name Freq PRN Reason Stop Dose Admin Sodium Chloride 1,000 mls @ 999 mls/hr 10/26/23 12:27 10/26/23 13:41 Ns IV 10/26/23 13:27 Infused .Q1H1M ONE Infusion Ketorolac Tromethamine 30 mg 10/26/23 12:26 10/26/23 12:34 Ketorolac Tromethamine 30 Mg/Ml Vial IVPUSH 10/26/23 12:27 30 mg ONCE ONE Administration Ondansetron HCl 4 mg 10/26/23 12:26 10/26/23 12:34 Ondansetron Hcl 4 Mg/2 Ml Vial IVPUSH 10/26/23 12:27 4 mg ONCE ONE Administration Discharge Plan Discharge Clinical Impression: Acute left flank pain Patient Disposition: Home, Self-Care Instructions: Flank Pain (ED) Additional Instructions: You were seen in the emergency department due to left-sided flank pain. We had medicated you with Toradol, Zofran, and IV fluids. Your blood work was normal, you do not have signs of a urinary tract infection. Your CT of your abdomen and pelvis does not show any kidney stones. If any new or worsening symptoms occur including but not limited to fevers, chills, chest pain, shortness of breath, please return for re-evaluation. Follow-up with your primary care physician regarding this visit. Prescriptions: No Action prednisone 20 mg tablet 20 mg PO BID Qty: 10 0RF ondansetron 4 mg tablet,disintegrating 4 mg PO Q8-12H PRN (Reason: nausea and vomiting) Qty: 7 0RF atorvastatin 10 mg tablet 10 mg PO BEDTIME tamsulosin [Flomax] 0.4 mg capsule 0.4 mg PO DAILY Qty: 30 0RF Interventions: ED Discharge Assessment Last Done: 10/26/23 13:49 Discharge Date/Time: 10/26/23 13:52 Print Language: Kenyan
[2023-10-26] MEDS: 0.9 % Sodium Chloride 1,000 ML 999 ML IV (12:31)
[2023-10-26] MEDS: Ketorolac Tromethamine 30 MG/ML VIAL IVPUSH (12:34)
[2023-10-26] MEDS: ondansetron HCL 4 MG/2 ML VIAL IVPUSH (12:34)
[2023-10-26 13:49] VITALS: BP 139/81; PULSE 66; RESP 16; TEMP 36.4; O2SAT 95
== END 2023-10-26 13:52 | disposition home or self-care (01) ==
PROVIDERS: Emergency Provider Emergency Medicine; PCP Internal Medicine
DX: R10.9 Unspecified abdominal pain (principal); R35.0 Frequency of micturition; R11.0 Nausea; R03.0 Elevated blood-pressure reading, without diagnosis of hypertension; Z87.442 Personal history of urinary calculi
CPT/HCPCS: 36415; 74176; 80053; 81003; 83690; 85025; 96361; 96374; 96375; 99284; J1885; J2405